=== PATIENT | male | born 1975 | race Caucasian/White ===

== ENCOUNTER 2017-11-01 09:44 | Emergency (ER) ==
[2017-11-01 09:52] VITALS: BP 141/87; TEMP 99.3; BMI 30.8
--- NOTE | 2017-11-01 11:49 | CT ---
EXAM: CT left knee without contrast. HISTORY: Left knee pain, audible pop. COMPARISON: None available. TECHNIQUE: Multiple axial images of the left knee were obtained without intravenous contrast. Image s were reformatted in the sagittal and coronal planes. FINDINGS: Bone mineralization is normal. No acute fracture or dislocation is identified. Small bruno ear calcific or ossific fragments seen within the medial aspect of a small joint effusion on axial im age 51 with some more ill-defined high density near the same area on axial image 54. Additional tiny fragment lateral to the lateral femoral condyle and coronal image 34 and axial image 62. No donor s ites are seen. Joint spaces are maintained. No other localized soft tissue abnormality detected. IMPRESSION: 1. No acute fracture or dislocation. 2. A few small calcific or ossific fragments and larger high density focus with a small joint effusi on could be loose bodies or due to previous chip fractures. 3. Consider follow-up MRI for further evaluation.
--- NOTE | 2017-11-01 12:18 | ED.PDOC ---
General ED Provider: Dr. JALYN CHOU Chief Complaint: Knee Pain/Injury Stated Complaint: left knee pain Time Seen by Physician: 10:00 Mode of Arrival: Wheelchair Information Source: Patient Exam Limitations: No limitations Nursing and Triage Documentation Reviewed and Agree: Yes Does patient meet sepsis criteria?: No If yes, has appropriate treatment been initiated?: No (amy present) System Inflammatory Response Syndrome: Not Applicable Sepsis Protocol: For patient's 13 years and over: Temp is 96.8 and below OR 101 and greater Pulse >90 BPM Resp >20/minute Acutely Altered Mental Status Are patient's symptoms suggestive of a new infection, such as: -Pneumonia -Skin, Soft Tissue -Endocarditis -UTI -Bone, Joint Infection -Implantable Device -Acute Abdominal Infection -Wound Infection -Meningitis -Blood Stream Catheter Infection -Unknown Musculoskeletal Complaint Exam - Knee Pain Complaint/Exam Mechanism of Injury: Reports: Trauma Onset/Duration: today Symptoms Are: Still present Onset of Pain: Reports: Immediate Initial Severity: Moderate Current Severity: Moderate Location: Reports: Discrete Character: Reports: Aching, Throbbing Alleviating: Reports: Rest, Position Aggravating: Reports: Movement, Weight bearing, Prolonged standing Associated Signs and Symptoms: Denies: Swelling, Redness, Bruising, Fever, Weakness, Numbness, Tingling Able to Bear Weight: Yes Septic Arthritis Risk Factors: Reports: None Gout Risk Factors: Reports: None Knee Findings: Present: Swelling Tenderness: Present: Pre-patellar Limited Range of Motion: Present: Active, Passive, Flexion, Extension, Patellar apprehension Differential Diagnoses: Closed Fracture, Internal Derangement Review of Systems - Review Of Systems Constitutional: Reports: No symptoms Eyes: Reports: No symptoms Ears, Nose, Mouth, Throat: Reports: No symptoms Respiratory: Reports: No symptoms Cardiac: Reports: No symptoms GI: Reports: No symptoms : Reports: No symptoms Musculoskeletal: Reports: Joint pain (left knee ) Skin: Reports: No symptoms Neurological: Reports: No symptoms Endocrine: Reports: No symptoms Hematologic/Lymphatic: Reports: No symptoms All Other Systems: Reviewed and Negative Past Medical History - Past Medical History Previously Healthy: Yes Endocrine: Reports: None Cardiovascular: Reports: None Respiratory: Reports: None Hematological: Reports: None Gastrointestinal: Reports: None Genitourinary: Reports: None Neuro/Psych: Reports: None Musculoskeletal: Reports: None Cancer: Reports: None - Surgical History General Surgical History: Reports: None - Family History Family History: Reports: None - Social History Smoking Status: Never smoker Hx Substance Use: No Alcohol Screening: None Physical Exam - Physical Exam Appearance: Well-appearing, No pain distress, Well-nourished Eyes: PUSHPA, EOMI, Conjunctiva clear ENT: Ears normal, Nose normal, Oropharynx normal Respiratory: Airway patent, Breath sounds clear, Breath sounds equal, Respirations nonlabored Cardiovascular: RRR, Pulses normal, No rub, No murmur GI/: Soft, Nontender, No masses, Bowel sounds normal, No Organomegaly Musculoskeletal: Limited ROM (left knee ) Skin: Warm, Dry, Normal color Neurological: Sensation intact, Motor intact, Reflexes intact, Cranial nerves intact, Alert, Oriented Psychiatric: Affect appropriate, Mood appropriate Interpretation - Radiology Interpretation Radiology Interpretation By: Radiologist Radiology Results: Positive (injury must have MRI) Critical Care Note - Critical Care Note Total Time (mins): 0 Course - Course Orders, Labs, Meds: Orders Category Date Time Status CT KNEE LEFT WITHOUT CONTRAST Stat RADS 11/01/17 10:29 Completed Vital Signs: Temp Pulse Resp BP Pulse Ox 11/01/17 09:44 99.3 F 97 H 16 141/87 H 98 Departure - Departure Time of Disposition: 12:18 Disposition: HOME SELF-CARE Discharge Problem: Knee pain, Injury of knee Instructions: Arthralgia (ED), Knee Pain (ED), Swollen Joint (ED) Condition: Good Pt referred to PMD for follow-up: Yes IPMP verified?: No Additional Instructions: Please call your Family Physician as soon as possible to schedule a follow-up appointment. YOU ARE BEST SERVED BASED ON THE KNEE MODEL I PRODUCED , YOU MUST HAVE AN M.R.I of the knee jewels Allergies/Adverse Reactions: Allergies No Known Allergies Allergy (Unverified 11/01/17 09:51) Home Medications: Ambulatory Orders 1 [No Reported Medications] 11/01/17
== END 2017-11-01 12:32 | disposition home or self-care (01) ==
LOC: ED 09:44
DX: S89.92XA Unspecified injury of left lower leg, initial encounter (principal); M25.562 Pain in left knee; X50.1XXA Overexertion from prolonged static or awkward postures, initial encounter
CPT/HCPCS: 99283

== ENCOUNTER 2017-11-05 14:30 | Outpatient (CLI) ==
--- NOTE | 2017-11-06 06:16 | MRI ---
EXAM: MRI left knee without contrast. HISTORY: Slipped on floor. Effusion in the left knee. Pain. Limited range of motion. Swelling. No left knee surgery reported.. TECHNIQUE: Using a local extremity coil on a high field strength magnet multiplanar multisequence MR I performed of the left knee without intravenous or intra-articular gadolinium contrast. COMPARISON: CT left knee 11/01/2017. FINDINGS: Within the medial compartment the medial meniscus is intact without discrete surfacing men iscal tear. The medial compartment cartilage congruent. Small focus of subchondral bone marrow shelia a/contusion over the posterior weightbearing rim of the medial tibial plateau with tiny subchondral f racture. Within the lateral compartment lateral meniscus is intact without discrete surfacing meniscal tear. Small focus of confluent subchondral bone marrow edema/contusion with subchondral fracture over the a nterior lateral weightbearing aspect of the lateral femoral condyle extending along the lateral wall. The lateral compartment cartilage otherwise congruent. Within the patellofemoral compartment the patella seated with intact patellar attachment of the media l and lateral patellar retinaculum. Prominent medial patella plica. Marked patellar chondrosis/seamus dromalacia patella over approximate 19 mm wide area from the median ridge over the lateral facet with full-thickness cartilage fissuring/ulceration. The trochlear groove cartilage otherwise congruent. Moderate sized left knee effusion. Three small filling defects seen along the anterior intercondylar notch at the joint line with the largest 10 mm representing loose bodies. Intact ACL and PCL fibers showing normal orientation. Some edema along the posterior cruciate ligament recess with question po sterior capsular tear/injury. No translation of the tibia with respect to the femur. The extensor m echanism is intact. The anterior superficial soft tissue edema/swelling. The medial collateral liga ment as well as lateral collateral ligament complex and posterolateral corner intact.. IMPRESSION: Small focal areas of subchondral bone marrow edema/contusion with subchondral fracture o john the posterior weightbearing rim of the medial tibial plateau as well as over the anterior lateral weightbearing aspect of the lateral femoral condyle extending along the lateral wall. No discrete surfacing meniscal tear identified. Patella seated. Marked patellar chondrosis/chondromalacia patella with 19 mm area of full-thickness cartilage fissuring/ulceration. Moderate sized left effusion. Filling defects along the anterior intercondylar notch at the joint bruno e representing loose bodies, with the largest 10 mm. Intact cruciate and collateral ligaments. Edema along the posterior cruciate ligament recess with question posterior capsular tear/injury. No translation of the tibia with respect to the femur.
== END 2017-11-05 14:31 | disposition home or self-care (01) ==
LOC: RAD 14:30
PROVIDERS: ATTEND Nurse Practitioner Family
DX: M25.462 Effusion, left knee (principal); M25.562 Pain in left knee